=== PATIENT | male | born 1970 | race Caucasian/White ===

== ENCOUNTER 2021-08-15 03:30 | Emergency (ER) | payer OTHER ==
[~2021-08-15] VITALS: Ht 185.4 cm; Wt 115.2 kg
[~2021-08-15 03:30] MED LIST: BACTRIM DS TAB1 EACH PO
[2021-08-15] MEDS ORDERED: LISINOPRIL10 MG PO (03:48)
--- NOTE | 2021-08-16 07:17 | EKG ---
[facility] [address] [place] [address] Signed Sinus tachycardia with occasional premature ventricular complexes Left axis deviation Abnormal ECG No previous ECGs available Confirmed by SAMANTHA MATHIS MD ([id number] on 08/16/2021 7:17:28 AM Electronically Signed By: SAMANTHA MATHIS MD 08/16/21 0717 PATIENT NAME: FARHEEN FIELD AMARILLO Electrocardiogram DATE OF : 66 PHYSICIAN: SAMANTHA MATHIS MD REPORT #: [id number] REPORT IS CONFIDENTIAL AND NOT TO BE RELEASED WITHOUT AUTHORIZATION
== END 2021-08-15 05:00 | disposition left against medical advice (07) ==
LOC: ED 03:30
DX: R51.9 Headache, unspecified (principal); Z76.0 Encounter for issue of repeat prescription; I10 Essential (primary) hypertension; F17.200 Nicotine dependence, unspecified, uncomplicated; Z79.899 Other long term (current) drug therapy
CPT/HCPCS: 71045; 80053; 81001; 85025; 93005; 93010; 99284-25